=== PATIENT | female | born 1970 | race Caucasian/White ===

== ENCOUNTER 2025-01-10 07:56 | Emergency (ER) | payer OTHER ==
[~2025-01-10] VITALS: Ht 137.2 cm; Wt 83.5 kg
[2025-01-10 08:13] VITALS: O2SAT 98
[2025-01-10 08:42] LABS: BASOPHILS % 1.2 % (0.0-2.0); EOSINOPHILS % 2.8 % (0.0-5.0); HEMATOCRIT. 42.1 % (36.0-48.0); HEMOGLOBIN. 14.3 g/dL (12.0-16.0); LYMPHOCYTES % 31.5 % (20.0-50.0); MEAN CORPUSCULAR HEMOGLOBIN 32.7 pg (28.0-32.0); MEAN CORPUSCULAR HGB CONC 34.1 g/dL (31.0-37.0); MEAN CORPUSCULAR VOLUME 95.8 fL (81.0-99.0); MEAN PLATELET VOLUME 8.2 fl (7.4-10.4); MONOCYTES % 7.1 % (2.0-8.0); NEUTROPHILS % 57.4 % (40.0-76.0); PLATELET 223 x1000/uL (130-400); RED BLOOD CELL COUNT 4.39 mill/uL (4.2-5.4); RED CELL DISTRIBUTION WIDTH 13.3 % (11.6-14.6); WHITE BLOOD COUNT 6.2 x1000/uL (4.5-11.0)
[2025-01-10 08:51] LABS: CARBON DIOXIDE 28 mEq/L (21-32); CHLORIDE 101 mEq/L (98-107); POTASSIUM 3.8 mEq/L (3.5-5.1); SODIUM 139 mEq/L (136-145)
[2025-01-10 08:52] LABS: CALCIUM 9.5 mg/dL (8.7-10.4)
[2025-01-10 08:56] LABS: CREATININE 0.7 mg/dL (0.6-1.0)
[2025-01-10 08:57] LABS: GLUCOSE 141 mg/dL (70-105); TROPONIN I HIGH SENSITIVITY 4 ng/L (3.0-34); UREA NITROGEN BLOOD 14 mg/dL (9-23)
[2025-01-10 08:58] LABS: ALANINE AMINOTRANSFERASE 44 IU/L (10-49)
[2025-01-10 08:59] LABS: ALBUMIN 4.3 g/dL (3.2-4.8); ASPARTATE AMINOTRANSFERASE 49 IU/L (<34); BILIRUBIN DIRECT 0.1 mg/dL (<=3.0); BILIRUBIN TOTAL 0.6 mg/dL (0.1-1.0); PROTEIN TOTAL 7.8 g/dL (6.0-8.3)
[2025-01-10] MEDS: HYDROCODONE/ACETAMINOPHEN 5/325MG TABLET PO STA (09:05)
[2025-01-10] MEDS ORDERED: DICY20TA2 MT (11:51)
[2025-01-10 12:00] LABS: CLARITY URINE CLEAR (CLEAR); COLOR URINE YELLOW (YELLOW); GLUCOSE URINE NEGATIVE (NEGATIVE); KETONES URINE NEGATIVE (NEGATIVE); LEUKOCYTE ESTERASE URINE NEGATIVE (NEGATIVE); NITRITE URINE NEGATIVE (NEGATIVE); OCCULT BLOOD URINE NEGATIVE (NEGATIVE); PH URINE 6.5 (4.5-8.0); PROTEIN URINE NEGATIVE (NEGATIVE); SPECIFIC GRAVITY URINE 1.024 (1.005-1.030); UROBILINOGEN URINE 0.2 E.U./dL (0.2-1.0)
[2025-01-10 12:12] VITALS: BP 142/86; PULSE 67; RESP 14; TEMP 37; O2SAT 98
== END 2025-01-10 12:11 | disposition home or self-care (01) ==
LOC: ER 07:56
DX: R10.9 Unspecified abdominal pain (principal); I10 Essential (primary) hypertension; Z90.49 Acquired absence of other specified parts of digestive tract; Z79.899 Other long term (current) drug therapy
CPT/HCPCS: 99285; 74177; 80076; 80048; 81003; 83690; 85025; 84484; 36415; 93005; Q9967

== ENCOUNTER 2025-02-10 08:45 | Emergency (ER) | payer OTHER ==
[~2025-02-10] VITALS: Ht 134.6 cm; Wt 82.0 kg
[~2025-02-10 08:45] MED LIST: DICY20TA2 MT
[2025-02-10 08:57] VITALS: O2SAT 98
[2025-02-10] MEDS: MAGNESIUM/ALUMINUM HYDROXIDE/SIMETHICONE 30ML UDC PO ONE (09:38)
[2025-02-10] MEDS: ONDANSETRON 4MG ODT PO ONE (09:38)
[2025-02-10] MEDS: FAMOTIDINE 20MG TABLET PO ONE (09:38)
[2025-02-10] MEDS: KETOROLAC 30MG/ML VIAL IM ONE (09:40)
[2025-02-10 09:46] LABS: CARBON DIOXIDE 25 mEq/L (21-32); CHLORIDE 101 mEq/L (98-107); POTASSIUM 3.2 mEq/L (3.5-5.1); SODIUM 135 mEq/L (136-145)
[2025-02-10 09:47] LABS: CALCIUM 9.2 mg/dL (8.7-10.4)
[2025-02-10 09:48] LABS: BASOPHILS % 0.8 % (0.0-2.0); EOSINOPHILS % 0.4 % (0.0-5.0); HEMATOCRIT. 43.3 % (36.0-48.0); HEMOGLOBIN. 14.8 g/dL (12.0-16.0); LYMPHOCYTES % 17.5 % (20.0-50.0); MEAN CORPUSCULAR HEMOGLOBIN 32.1 pg (28.0-32.0); MEAN CORPUSCULAR HGB CONC 34.3 g/dL (31.0-37.0); MEAN CORPUSCULAR VOLUME 93.6 fL (81.0-99.0); MEAN PLATELET VOLUME 8.2 fl (7.4-10.4); MONOCYTES % 7.6 % (2.0-8.0); NEUTROPHILS % 73.7 % (40.0-76.0); PLATELET 201 x1000/uL (130-400); RED BLOOD CELL COUNT 4.63 mill/uL (4.2-5.4); WHITE BLOOD COUNT 4.9 x1000/uL (4.5-11.0)
[2025-02-10 09:51] LABS: CREATININE 0.8 mg/dL (0.6-1.0)
[2025-02-10 09:52] LABS: GLUCOSE 138 mg/dL (70-105); UREA NITROGEN BLOOD 12 mg/dL (9-23)
[2025-02-10 09:53] LABS: ALANINE AMINOTRANSFERASE 50 IU/L (10-49); ALBUMIN 4.3 g/dL (3.2-4.8); ASPARTATE AMINOTRANSFERASE 60 IU/L (<34)
[2025-02-10 09:54] LABS: BILIRUBIN TOTAL 0.6 mg/dL (0.1-1.0); PROTEIN TOTAL 8.1 g/dL (6.0-8.3)
[2025-02-10 10:03] LABS: CLARITY URINE CLEAR (CLEAR); COLOR URINE YELLOW (YELLOW); GLUCOSE URINE NEGATIVE (NEGATIVE); KETONES URINE NEGATIVE (NEGATIVE); LEUKOCYTE ESTERASE URINE TRACE (NEGATIVE); NITRITE URINE NEGATIVE (NEGATIVE); OCCULT BLOOD URINE NEGATIVE (NEGATIVE); PROTEIN URINE 1+ (NEGATIVE); SPECIFIC GRAVITY URINE 1.021 (1.005-1.030)
[2025-02-10 10:23] LABS: BACTERIA URINE NONE SEEN; SQUAMOUS EPITHELIAL CELL URINE 1+ /lpf (RARE/1+); WBC URINE 0-2 /hpf (0-2); YEAST URINE NONE SEEN
[2025-02-10] MEDS: POTASSIUM CHLORIDE 20MEQ TABLET SR PO ONE (11:55)
[2025-02-10] MEDS ORDERED: FAMO-135 PO (11:57)
[2025-02-10] MEDS ORDERED: MAG355OR21 MT (11:57)
[2025-02-10 12:09] VITALS: BP 149/80; PULSE 63; RESP 18; TEMP 36.9; O2SAT 98
== END 2025-02-10 12:23 | disposition home or self-care (01) ==
LOC: ER 08:45
DX: K29.70 Gastritis, unspecified, without bleeding (principal); G44.209 Tension-type headache, unspecified, not intractable; I10 Essential (primary) hypertension; Z90.49 Acquired absence of other specified parts of digestive tract
CPT/HCPCS: 99284; 80053; 81003; 81025; 83690; 85025; 36415; 96372; J1885; Q0162

== ENCOUNTER 2025-08-29 21:07 | Emergency (ER) | payer OTHER ==
[~2025-08-29] VITALS: Ht 144.8 cm; Wt 87.0 kg
[~2025-08-29 21:07] MED LIST changes: +FAMO-135 PO; +MAG355OR21 MT
[2025-08-29 21:23] VITALS: O2SAT 99
[2025-08-29] MEDS ORDERED: HYDR12.54 MT (22:10)
[2025-08-29] MEDS: AMLODIPINE 10MG TABLET PO ONE (22:32)
[2025-08-29] MEDS: IBUPROFEN 800MG TABLET PO ONE (22:32)
[2025-08-29 23:08] VITALS: BP 170/83; PULSE 66; RESP 16; TEMP 36.8; O2SAT 97
== END 2025-08-29 23:11 | disposition home or self-care (01) ==
LOC: ER 21:07
DX: I10 Essential (primary) hypertension (principal); E78.00 Pure hypercholesterolemia, unspecified; Z79.899 Other long term (current) drug therapy; Z90.49 Acquired absence of other specified parts of digestive tract
CPT/HCPCS: 99283

== ENCOUNTER 2025-09-26 18:01 | Emergency (ER) | payer OTHER ==
[~2025-09-26] VITALS: Ht 160 cm; Wt 85.0 kg
[~2025-09-26 18:01] MED LIST changes: +HYDR12.54 MT
[2025-09-26 18:20] VITALS: O2SAT 99
[2025-09-26 18:44] LABS: BASOPHILS % 1.1 % (0.0-2.0); EOSINOPHILS % 3.8 % (0.0-5.0); HEMATOCRIT. 39.1 % (36.0-48.0); HEMOGLOBIN. 13.2 g/dL (12.0-16.0); LYMPHOCYTES % 37.5 % (20.0-50.0); MEAN PLATELET VOLUME 8.3 fl (7.4-10.4); MONOCYTES % 8.5 % (2.0-8.0); NEUTROPHILS % 49.1 % (40.0-76.0); PLATELET 212 x1000/uL (130-400); RED BLOOD CELL COUNT 4.12 mill/uL (4.2-5.4); RED CELL DISTRIBUTION WIDTH 12.9 % (11.6-14.6)
[2025-09-26 19:09] LABS: CREATININE 0.8 mg/dL (0.6-1.0); UREA NITROGEN BLOOD 14 mg/dL (9-23)
[2025-09-26 20:36] LABS: ETHANOL BLOOD < 10 mg/dL (<10)
[2025-09-26 20:37] LABS: PROTEIN TOTAL 7.6 g/dL (6.0-8.3)
[2025-09-26 20:38] LABS: ASPARTATE AMINOTRANSFERASE 26 IU/L (<34); BILIRUBIN DIRECT < 0.1 mg/dL (<=3.0); BILIRUBIN TOTAL 0.3 mg/dL (0.1-1.0)
[2025-09-26] MEDS: KETOROLAC 30MG/ML VIAL IV SCH (21:23)
[2025-09-26 22:52] LABS: CLARITY URINE CLEAR (CLEAR); COLOR URINE YELLOW (YELLOW); GLUCOSE URINE NEGATIVE (NEGATIVE); KETONES URINE NEGATIVE (NEGATIVE); LEUKOCYTE ESTERASE URINE NEGATIVE (NEGATIVE); NITRITE URINE NEGATIVE (NEGATIVE); OCCULT BLOOD URINE NEGATIVE (NEGATIVE); PH URINE 6.0 (4.5-8.0); PROTEIN URINE NEGATIVE (NEGATIVE); SPECIFIC GRAVITY URINE 1.064 (1.005-1.030); UROBILINOGEN URINE 0.2 E.U./dL (0.2-1.0)
[2025-09-27] MEDS ORDERED: CIPR-494 MT (00:33)
[2025-09-27] MEDS ORDERED: METR-167 MT (00:33)
[2025-09-27] MEDS: IOHEXOL-300 100 ML BOTTLE ONE (00:33)
[2025-09-27 01:08] VITALS: BP 183/79; RESP 18; TEMP 36.6; O2SAT 100
[2025-09-27 01:20] VITALS: PULSE 52
[2025-09-27] MEDS: ATENOLOL 25MG TABLET PO ONE (01:20)
== END 2025-09-27 01:26 | disposition home or self-care (01) ==
LOC: ER 18:01
DX: K57.92 Diverticulitis of intestine, part unspecified, without perforation or abscess without bleeding (principal); E78.00 Pure hypercholesterolemia, unspecified; I10 Essential (primary) hypertension; Z90.49 Acquired absence of other specified parts of digestive tract; Z79.899 Other long term (current) drug therapy
CPT/HCPCS: 80076; 80048; 81003; 80320; 83690; 85025; 86850; 86900; 86901; 36415; 74177; 96374; 99285; Q9967; J1885; G0480